=== PATIENT | male | born 1975 | race Caucasian/White ===

== ENCOUNTER 2019-08-09 08:23 | Observation (INO) ==
--- NOTE | 2019-08-05 12:37 | Anesthesiology Consultation ---
Date of Service August 05, 2019 Assessment & Plan (1) Encounter for pre-operative examination: Chart Review Chart Review: Acceptable Risk for Surgery and Patient NOT seen in Pre Admission Testing Consults Requested none History Surgery Operation Date: 08/09/19 12:00 Proposed Procedures p L4-L5, L5-S1 Laminectomy - Bert Ruelas DO Height/Weight Height: 5 ft 9 in Weight: 127.913 kg Allergies Allergy/AdvReac Type Severity Reaction Status Date / Time lisinopril AdvReac Mild Cough Verified 08/04/19 13:34 Medications Home Medications Medication Instructions Recorded Confirmed Last Taken celecoxib 200 mg capsule 200 mg PO BID 05/10/19 08/04/19 Unknown omeprazole 20 mg tablet,delayed 20 mg PO QAM 05/10/19 08/04/19 Unknown release Past Medical History Medical History Acid reflux Hypertension Elevated BP readings felt 2/2 celebrex; lisinopril was initiated but discontinued as patient developed cough (PCP aware) Morbid obesity Sciatica Exercise / Class Metabolic Activity II 4-5 Yardwork/Stairs/Walk up hill Past Family History Family History Unknown No problems noted. Past Surgical History Surgical History History of anesthesia reaction Awareness with oral surgery History of oral surgery Social History Smoking Status: Never smoker tobacco type: smokeless tobacco Do You Dip or Chew Tobacco: Yes Hx Alcohol Use: Yes Alcohol type: beer alcohol intake frequency: holidays/special occasions only Hx Substance Use: No substance use type: does not use Testing Laboratory Results Laboratory Tests 08/03/19 09:46 WBC 6.61 Hgb 15.2 Plt Count 189
--- NOTE | 2019-08-06 16:33 | History and Physical Report ---
DATE OF ADMISSION: 08/09/2019 CHIEF COMPLAINT: Back pain and lower extremity difficulty. HISTORY OF PRESENT ILLNESS: Problems have been ongoing several months. He fell from a gauthier injuring his lumbar spine, injuring his buttock region. He has had persistent nerve root irritation since then. He has been refractory to conservative care. PAST MEDICAL HISTORY: Hypertension. No cancer, COPD, diabetes mellitus, carcinoma. Obesity. PAST SURGICAL HISTORY: Negative. ALLERGIES: Negative. FAMILY HISTORY: Denied of heart disease, diabetes. SOCIAL HISTORY: He is , 2 children. No alcohol, tobacco. Moderately active. REVIEW OF SYSTEMS: Twelve system review no fevers, sweats, chills. Ear, nose and throat negative. No chest pain, palpitations, asthma, wheezing, shortness of breath. No nausea, vomiting. No urgency or frequency. He has numbness and tingling, back pain, muscle pain, and cramping. MEDICATIONS: Lisinopril and Celebrex. OBJECTIVE: GENERAL: 5 feet 9 inches, 285 pounds, in moderate distress. VITAL SIGNS: Blood pressure 140/80, pulse 80, respirations 16. HEENT: Pupils react to light and accommodation. Ear, nose and throat clear. CARDIAC: Normal S1, S2, no S3. LUNGS: Clear to auscultation. No rales, rhonchi or wheezing. ABDOMEN: Soft, nontender, bowel sounds present in all quadrants. MUSCULOSKELETAL: He has numbness and tingling. He has some straight leg raising pain. He has weakness with dorsiflexion of his right foot. IMAGES: Reviewed demonstrating fairly severe stenosis at L4-L5 and L5-S1 lumbar spine. PLAN: Includes a laminectomy L4-L5 and L5-S1 lumbar spine.
[~2019-08-09 08:23] MED LIST: CEFAZOLIN 3000MG 72.5 ML IV SCH; LIDOCAINE HCL 2% 2 ML VIAL/AMP(20MG/ML) INFIL ONE; LR 15ML/HR IV SCH; MIDAZOLAM HCL 1 MG/ML 2ML VIAL ONE; ONDANSETRON INJ 2 MG/ML 2 ML VIAL ONE; PROPOFOL IV EMULSION 10 MG/ML 20 ML VIAL IV ONE; ROCURONIUM BROMIDE 10 MG/ML 5 ML VIAL ONE; SODIUM CHLORIDE 0.9% 1000ML IV SCH; fentaNYL citrate 100 MCG/2 ML VIAL ONE
[2019-08-09] MEDS ORDERED: BUPIVACAINE/EPINEPHRINE 0.5% MPF 1:200,000 30 ML VIAL ONE (10:33)
[2019-08-09] MEDS ORDERED: GELATIN SPONGE SZ 100 ONE (10:33)
[2019-08-09] MEDS ORDERED: BACITRACIN INJ 50,000 UNIT VIAL ONE (10:33)
[2019-08-09] MEDS ORDERED: VANCOMYCIN HCL 1000MG/20ML VIAL ONE (10:33)
[2019-08-09] MEDS ORDERED: THROMBIN FOR SOLN 20000 UNIT KIT ONE (10:33)
[2019-08-09] MEDS ORDERED: HYDROmorphone INJ 2 MG/ML SYR/VIAL IV PRN (10:37)
[2019-08-09] MEDS ORDERED: ATROPINE SULFATE 0.1 MG/ML 10ML SYR IV PRN (10:37)
[2019-08-09] MEDS ORDERED: ePHEDrine sulfate 50 MG/ML AMP IV PRN (10:37)
[2019-08-09] MEDS ORDERED: PROMETHAZINE HCL 12.5 MG in SODIUM CHLORIDE 0.9% 50 ML IV PRN (10:37)
[2019-08-09] MEDS ORDERED: fentaNYL citrate 100 MCG/2 ML VIAL IV PRN (10:37)
[2019-08-09] MEDS ORDERED: ONDANSETRON INJ 2 MG/ML 2 ML VIAL IV PRN ×2 (10:37→14:00)
--- NOTE | 2019-08-09 10:44 | History & Physical Bridge Note ---
Date of Service August 09, 2019 History & Physical Bridge Note I have examined the patient, reviewed the History & Physical and in the interval since the performance of the History & Physical I have noted the following changes of clinical significance: no changes noted
[2019-08-09] MEDS ORDERED: KETAMINE HCL INJ 50 MG/ML 10 ML VIAL ONE (11:21)
[2019-08-09] MEDS ORDERED: HYDROmorphone INJ 2 MG/ML SYR/VIAL ONE (11:34)
--- NOTE | 2019-08-09 12:04 | Fluoroscopy Report ---
FL spine 1V any level CLINICAL HISTORY: L4-L5, L5-S1 LAMI COMPARISON STUDY: Lumbar spine 04/05/2019. FLUOROSCOPY TIME: 1 second. FINDINGS: Single fluoroscopic spot image of the lower lumbar spine demonstrates skin retractors poste rior to the L4-S1 levels. IMPRESSION: Fluoroscopy for for L4-S1 laminectomy. Electronically signed by: Dimitri Solano M.D. 08/09/2019 12:03 PM
--- NOTE | 2019-08-09 12:28 | Post Operative Brief Note ---
PG Immediate Post Op with CF Date of Surgery August 09, 2019 Pre & Post Diagnosis Operation Date: 08/09/19 10:10 Pre-Op Diagnosis: Spinal Stenosis, Disc Herniation Post-Op Diagnosis: Spinal Stenosis, Disc Herniation Procedure Operation Date: 08/09/19 10:10 Actual Procedures p L3-L4,L4-L5, L5-S1 Laminectomy(Not Applicable) - Bert Ruelas DO Surgeon Bert Ruelas DO [employer]inerator Plant Supervisor anurag Estimated Blood Loss 200 Findings Consistent with Post-Op Diagnosis Specimens Specimen Description: no specimen per surgeon Drains Jones Catheter and Hemovac Drain Anesthesia Type General Overlapping Procedure I was immediately available: during the entire case.
--- NOTE | 2019-08-09 12:43 | Operative Report ---
Post Operative Report Pre & Post Diagnosis Operation Date: 08/09/19 10:10 Pre-Op Diagnosis: Spinal Stenosis, Disc Herniation Post-Op Diagnosis: Spinal Stenosis, Disc Herniation Procedure Operation Date: 08/09/19 10:10 Actual Procedures p L3-L4,L4-L5, L5-S1 Laminectomy(Not Applicable) - Bert Ruelas DO Surgeon Bert Ruelas DO [employer] Consultant anurag Estimated Blood Loss 200 Findings Consistent with Post-Op Diagnosis Severe stenosis L3-4 L4-5 L5-S1 Specimens None none Anesthesia Type General Indications Severe stenosis Description of Procedure Patient was successfully brought to the operating room a general intubated anesthetic provided to the patient a temporary Jones catheter administered. Patient placed prone on Meet table scrubbed prepped draped sterile A skin incision fashion incision came down on the lamina facet joints at L3-4 L4-5 5 1. We did a meticulous decompression of neural elements 3 levels of lumbar spine L3-4 L4-5 and L5-S1 foraminotomy partial facetectomy taken out significant mild ligamentum flavum hypertrophy undercutting the facet joints. Because no injury blood loss controlled I felt no signs of instability no effusion required. We irrigated thoroughly with approximately 500 cc of fluid closed wound over Hemovac drain and vancomycin powder there will dressings applied the patient returned to PACU improved stable condition no complications no implants thank you I attest to the content of the Intraoperative Record and any orders documented therein. Any exceptions are noted below.
--- NOTE | 2019-08-09 13:16 | Anesthesiology Progress Note ---
Date of Service August 09, 2019 Anesthesia Post Procedure Vital Signs Vital Signs: Temp Pulse Pulse Resp BP Pulse Ox 08/09/19 13:04 58 L 18 121/68 100 08/09/19 12:55 59 L 18 175/95 H 97 08/09/19 12:45 68 18 166/102 H 95 08/09/19 12:37 36.9 C 70 18 173/89 H 98 08/09/19 08:52 36.9 C 63 20 129/84 97 Pain Intensity Left Lower Back: Pain Intensity: 3 Transfer of Care Handoff Completed per policy Notes Mental Status: alert / awake / arousable and participated in evaluation Patient Amnestic to Procedure: Yes Nausea / Vomiting: adequately controlled Pain: adequately controlled Airway Patency, RR, SpO2: stable & adequate BP & HR: stable & adequate Hydration State: stable & adequate Anesthetic Complications: no major complications apparent and Pt Satisfied with anesthetic care
[2019-08-09] MEDS ORDERED: OXYCODONE HCL IR 5 MG TAB (IMMEDIATE RELEASE) PO PRN (14:00)
[2019-08-09] MEDS ORDERED: HYDROmorphone INJ 1 MG/ML SYRINGE IV PRN (14:00)
[2019-08-09] MEDS ORDERED: ACETAMINOPHEN 1,000 MG/100 ML VIAL IV PRN (14:00)
[2019-08-09] MEDS ORDERED: OXYCODONE HCL IR 5 MG TAB (IMMEDIATE RELEASE) ONE (14:45)
[2019-08-09] MEDS: SODIUM CHLORIDE 0.9% 1000ML 1,000 ML IV SCH (18:24)
[2019-08-09] MEDS: CEFAZOLIN 2000MG 2,000 MG/15 ML SYR IV SCH (18:25)
[2019-08-09] MEDS: OXYCODONE HCL IR 5 MG TAB (IMMEDIATE RELEASE) PO PRN ×2 (19:01→23:53)
[2019-08-09] MEDS: DOCUSATE SODIUM 100 MG CAP PO SCH (21:53)
[2019-08-09] MEDS: CeleBREX 200 MG CAP PO SCH (21:53)
[2019-08-09] MEDS: HYDROmorphone INJ 1 MG/ML SYRINGE IV PRN (21:58)
[2019-08-10] MEDS: CEFAZOLIN 2000MG 2,000 MG/15 ML SYR IV SCH ×2 (03:27→10:50)
[2019-08-10] MEDS: OXYCODONE HCL IR 5 MG TAB (IMMEDIATE RELEASE) PO PRN ×2 (03:47→10:26)
[2019-08-10] MEDS: SODIUM CHLORIDE 0.9% 1000ML 1,000 ML IV SCH (05:32)
[2019-08-10] MEDS: HYDROmorphone INJ 1 MG/ML SYRINGE IV PRN (06:41)
[2019-08-10] MEDS: CeleBREX 200 MG CAP PO SCH ×2 (08:41→21:05)
[2019-08-10] MEDS: PANTOprazole 40 MG TAB PO SCH (08:41)
[2019-08-10] MEDS: DOCUSATE SODIUM 100 MG CAP PO SCH ×2 (08:41→21:05)
--- NOTE | 2019-08-10 08:46 | Anesthesiology Progress Note ---
Date of Service August 10, 2019 Anesthesia Post Procedure Vital Signs Vital Signs: Temp Pulse Pulse Resp BP Pulse Ox 08/10/19 07:38 37.0 C 59 L 16 104/58 L 96 08/10/19 03:28 37.2 C 66 18 112/69 95 08/09/19 23:14 37.5 C 81 15 109/68 96 08/09/19 19:35 36.5 C 61 16 118/73 99 08/09/19 16:34 36.5 C 57 L 16 106/64 92 08/09/19 15:26 36.5 C 79 16 104/64 98 08/09/19 14:18 58 L 16 110/72 100 08/09/19 13:50 36.6 C 57 L 16 103/67 100 08/09/19 13:35 36.8 C 61 18 109/64 100 08/09/19 13:25 36.8 C 59 L 18 115/61 100 08/09/19 13:15 36.8 C 69 18 125/69 100 08/09/19 13:05 58 L 18 121/68 100 08/09/19 12:55 59 L 18 175/95 H 97 08/09/19 12:45 68 18 166/102 H 95 08/09/19 12:37 36.9 C 70 18 173/89 H 98 08/09/19 08:52 36.9 C 63 20 129/84 97 Pain Intensity Left Lower Back: Pain Intensity: 8 Notes Mental Status: alert / awake / arousable Patient Amnestic to Procedure: Yes Nausea / Vomiting: adequately controlled Pain: adequately controlled Airway Patency, RR, SpO2: stable & adequate BP & HR: stable & adequate Hydration State: stable & adequate Anesthetic Complications: no major complications apparent
[2019-08-10] MEDS: HYDROCODONE/ACETAMINOPHEN 10/325 TAB PO PRN ×2 (14:53→21:04)
--- NOTE | 2019-08-10 14:59 | Operative Report ---
Post Operative Report Pre & Post Diagnosis Operation Date: 08/09/19 10:10 Pre-Op Diagnosis: Spinal Stenosis, Disc Herniation Post-Op Diagnosis: Spinal Stenosis, Disc Herniation Procedure Operation Date: 08/09/19 10:10 Actual Procedures p L3-L4,L4-L5, L5-S1 Laminectomy(Not Applicable) - Bert Ruelas DO Surgeon Bert Ruelas DO Orientation & Mobility Specialist anurag Estimated Blood Loss 200 Findings Consistent with Post-Op Diagnosis I attest to the content of the Intraoperative Record and any orders documented therein. Any exceptions are noted below.
[2019-08-11] MEDS: HYDROCODONE/ACETAMINOPHEN 10/325 TAB PO PRN ×2 (03:04→09:04)
[2019-08-11] MEDS ORDERED: bisacodyL 5 MG TABEC PO PRN (06:00)
[2019-08-11] MEDS: DOCUSATE SODIUM 100 MG CAP PO SCH (07:53)
[2019-08-11] MEDS: PANTOprazole 40 MG TAB PO SCH (07:53)
[2019-08-11] MEDS: CeleBREX 200 MG CAP PO SCH (07:54)
--- NOTE | 2019-08-11 07:57 | Discharge Summary ---
DATE OF DISCHARGE: 08/11/19 HISTORY OF PRESENT ILLNESS AND HOSPITAL COURSE: Rajeev is alert and oriented this morning. Moderate complaints of pain, taking p.o. No chest pain, shortness of breath. He has had an uneventful stay during his course here at the hospital. ASSESSMENT: Status post lumbar laminectomy, multiple levels with an obese individual. PLAN: Includes discharge home today with instruction, precautions, and a followup appointment in approximately 10 days.
[2019-08-11] MEDS ORDERED: POLYETHYLENE (MIRALAX) 17 GM PACK PO SCH ×2 (09:00→12:38)
== END 2019-08-11 10:15 | disposition home health service (06) ==
LOC: ASU 08:23 → 3E 08:23

== ENCOUNTER 2019-08-13 04:55 | Inpatient (IN) ==
[2019-08-13 06:11] LABS: Basophils # (auto) 0.04 K/uL (0-0.2); Basophils % (auto) 0.5 %; Eosinophils # (auto) 0.22 K/uL (0-0.5); Eosinophils % (auto) 2.6 %; Hematocrit (blood only) 36.6 % (42-52); Hemoglobin 11.9 g/dL (14.0-18.0); Immature Granulocytes # (auto) 0.03 K/uL (0.00-0.02); Immature Granulocytes % (auto) 0.4 %; Lymphocytes # (auto) 1.54 K/uL (1.2-3.4); Lymphocytes % (auto) 18.3 %; Mean Corpuscular Hemoglobin 29.9 pg (25-34); Mean Corpuscular Hgb Conc 32.5 g/dL (32-36); Mean Platelet Volume 11.5 fL (7.4-10.4); Monocytes % (auto) 7.1 %; Neutrophils % (auto) 71.1 %; Platelet Count 190 K/uL (130-400); RDW Coefficient of Variation 12.2 % (11.5-14.5); RDW Standard Deviation 41.3 fL (36.4-46.3); Red Blood Count 3.98 M/uL (4.7-6.1); White Blood Count 8.43 K/uL (4.8-10.8)
[2019-08-13] MEDS ORDERED: HYDROmorphone INJ 2 MG/ML SYR/VIAL IV STA (06:19)
[2019-08-13 06:28] LABS: Albumin Level 3.3 gm/dl (3.4-5.0); BUN Creatinine Ratio 15.6 (10-20); Calcium 8.6 mg/dl (8.5-10.1); Creatinine Clr Calc Pharmacy 129.8 ml/min; Est GFR (African American) 110.8; Est GFR (Non-African American) 95.6
[2019-08-13 06:31] LABS: Albumin Globulin Ratio 0.9 (0.9-2); Bilirubin,Total 0.4 mg/dl (0.2-1); C Reactive Protein 11.1 mg/dl (0-0.29); Globulin 3.6 gm/dl (2.5-4.0); Total Protein 6.9 gm/dl (6.4-8.2)
[2019-08-13] MEDS ORDERED: IOVERSOL 100ml IV PRN (06:40)
--- NOTE | 2019-08-13 07:04 | CT Scan Report ---
CT lumbar spine w con CLINICAL HISTORY: 44 years-old Male presenting with eval for abscess - post-surgical. TECHNIQUE: Multidetector CT of the lumbar spine was performed after the administration of intravenous contrast. IV contrast: 94 mL of Optiray 320. One or more dose lowering techniques were used consiste nt with the principles of ALARA (as low as reasonably achievable), including automatic exposure contr ol, mA or kV adjustment to individual patient size, and/or use of iterative reconstruction. COMPARISON: MR from 04/05/2019. CT DOSE (mGy.cm): The estimated cumulative dose is 767.26 mGy.cm. FINDINGS: Online Marketing Analyst topogram: Unremarkable. There has been interval laminectomies of L4 and L5. Overlying skin holger noted. Extensive infiltrat rose changes in the operative bed. Foci of gas also noted in the epidural region as well as within the spinal canal. This focus of gas may likely still be epidural (series 3 image [id number]). The gas may be ex pected depending on the surgical time course. No rim-enhancing collection is grossly apparent allowin g for the limitations of CT. Normal lumbar lordosis. Vertebral bodies maintain normal height and alignment. Moderate intervertebra l disc height loss at L3-4, where there is the greatest degree of degenerative change with a disc ost eophyte complex and moderate posterior spondylitic spurring. This results in moderate to severe spina l canal narrowing at this level. Similar degree of degenerative change at L5-S1 though there has been posterior decompression. Lesser degree of degenerative change at L4-5. Osseous neural foraminal narr owing noted on the right at L3-4 through L5-S1, greatest at L3-4, and on the left at L3-4 through L5- S1, greatest at L5-S1. No acute fracture or subluxation. Mild levoscoliosis may in part be positional. Visualized portion of the sacrum intact. IMPRESSION: 1. Gas and inflammatory changes likely all within the epidural space at the level of the L4 and L5 l aminectomies. This could be expected depending on the surgical time course. Allowing for the limitati ons and CT, no evidence of an epidural abscess. Notably, MRI is more sensitive for this diagnosis. 2. Significant adjacent level degenerative change at L3-4 with suspected moderate to severe spinal c anal stenosis. 3. Multilevel neural foraminal narrowing as detailed above. Electronically signed by: Jose Valdes M.D. 08/13/2019 7:02 AM
--- NOTE | 2019-08-13 08:28 | Emergency Department Note ---
Entered by Donta Keller acting as a scribe for Vikki Correa DO History of Present Illness General Chief complaint: Back Injury/Pain Stated complaint: POST-OP (MON), WORSENING BACK PAIN Time Seen by Provider: 08/13/19 05:04 Source: patient History of Present Illness Onset (ago): day(s) (yesterday) Location: back Pain Consistency: + other (worsening) Maximum Pain Intensity: 10 Quality: + stabbing Exacerbated By: + movement Associated symptoms: + other (Negative for abdominal pain, urinary incontinence, and changes in his appetite. ) The patient is a 44 year old male who presents to the emergency department with complaints of worsening back pain beginning yesterday. The patient states that he had a L3-L4, L4-L5, L5-S1 laminectomy four days ago. He notes that he has mild pain at the incision site, but he reports that he has been having worsening back pain with movement. The patient states that his pain feels like a stabbing that goes along with his heart beat, and he notes that it lasts for a few seconds at a time. He denies any abdominal pain, urinary incontinence, and changes in his appetite. Home Medications Home Medications Medication Instructions Recorded Confirmed Type celecoxib 200 mg capsule 200 mg PO BID 05/10/19 08/13/19 History omeprazole 20 mg tablet,delayed 20 mg PO QAM 05/10/19 08/13/19 History release hydrocodone-acetaminophen [[place]] 1 tab PO Q6H PRN #40 tab 08/09/19 08/13/19 Rx hydromorphone [Dilaudid] 4 mg PO Q6H PRN #20 tab 08/11/19 08/13/19 Rx Allergies Allergy/AdvReac Type Severity Reaction Status Date / Time lisinopril AdvReac Mild Cough Verified 08/13/19 05:15 Past Med/Surg History Medical History Encounter for pre-operative examination Lumbar spinal stenosis Lumbar radiculopathy Acid reflux Hypertension Elevated BP readings felt 2/2 celebrex; lisinopril was initiated but discontinued as patient developed cough (PCP aware) Anemia Morbid obesity Sciatica Surgical History History of lumbar laminectomy History of anesthesia reaction Awareness with oral surgery History of oral surgery Family History Unknown No problems noted. Social History Preferred Language: Irish Communication Ability: Effective Monomer Recovery Supervisor Required: No Beliefs That Will Affect Care: None marital status: Current Living Situation: Family current occupational status: employed current occupation: light duty Other Information That Helps Us Care for You: No Feels Safe at Home: Yes Smoking Status: Former smoker Tobacco Type: smokeless tobacco ; Do You Dip or Chew Tobacco: Yes ; Smoking End Date: 1990 ; Second Hand Exposure: No ; Tobacco Cessation Education Requested by Patient: No Hx Alcohol Use: No Hx Substance Use: No Review of Systems See HPI for pertinent positives & negatives. and A total of 10 systems reviewed and were otherwise negative Physical Exam Vital Signs Vital Signs - 24 hr 08/13/19 04:57 Temperature 37.1 C Temperature Source Oral Sepsis Recent Fever Within 48 Hours No Sepsis New/Unexplained Change in Mental Status No Sepsis Action Taken by Nursing No Action Required Pulse Rate 76 Respiratory Rate 20 Respiratory Effort / Characteristics Non-Labored Spontaneous Respiratory Depth Normal Blood Pressure 133/82 Blood Pressure Mean 99 Pulse Oximetry 99 Oxygen Delivery Method Room Air General: Appears uncomfortable, lying on right side. HEENT: Head - normocephalic and atraumatic Pupils are equal, round, and reactive to light. Extraocular eye muscles are intact, and sclera are anicteric. Nose - moist nasal mucosa without discharge. Mouth - moist buccal mucosa. Oropharynx is nonerythematous and there is no tonsillar exudate or edema noted. Neck: Supple; no JVD, nuchal rigidity, cervical lymphadenopathy, or auscultated bruits. Heart: Regular rate and rhythm. There is a normal S1 and S2 with no murmurs, clicks, or gallops appreciated. Lungs: Clear to auscultation bilaterally with no wheezes, rales, or rhonchi. Back: Surgical incision holger in place, no signs of infection. No drainage. Abdomen: Soft, completely nontender, nondistended, with good bowel sounds. There are no palpable pulsatile masses or hepatosplenomegaly. There is no guarding, rigidity, or rebound noted. Extremities: No evidence of cyanosis, clubbing, or edema. There are easily palpable peripheral pulses. Skin: warm and dry with good turgor and no rashes. Neuro: Normal muscle strength at the ankles and knees, 0/4 patellar reflexes in both legs, 2/4 Achilles reflexes in both legs. Course 0513: The patient was evaluated in room A4. A complete history and physical examination were performed. Nursing notes and previous electronic medical records were reviewed. IV lock was established and labs were drawn as above. 0623: Hydromorphone HCl 2mg IV 0705: I reevaluated and updated the patient. He got some relief of his pain after receiving medication. Dr. Ruelas - Orthopedic Surgery, [facility], was paged. We were unable to reach him. I then spoke with Dr. Antoine Hitchcock who was covering for him and he will evaluate the patient. Administered Medications Hydrocodone Bitart/Acetaminophen ([place] 10/325) 1 tab PO Q6H PRN PRN Reason: pain Stop: 08/27/19 16:23 Last Admin: 08/15/19 19:19 Dose: 1 tab Documented by: [id number] Admin: 08/14/19 03:23 Dose: 1 tab Documented by: [id number] Admin: 08/13/19 20:35 Dose: 1 tab Documented by: [id number] Hydromorphone HCl (Dilaudid) 4 mg PO Q6H PRN PRN Reason: severe pain (8-10) Stop: 08/27/19 16:29 Last Admin: 08/14/19 15:52 Dose: 4 mg Documented by: [id number] Admin: 08/14/19 07:54 Dose: 4 mg Documented by: [id number] Admin: 08/13/19 23:27 Dose: 4 mg Documented by: [id number] Admin: 08/13/19 17:19 Dose: 4 mg Documented by: [id number] Ketorolac Tromethamine (Toradol) 30 mg IV Q6H PRN PRN Reason: MODERATE Pain 4,5,6 Stop: 08/18/19 16:23 Last Admin: 08/16/19 08:08 Dose: 30 mg Documented by: [id number] Admin: 08/16/19 00:25 Dose: 30 mg Documented by: [id number] Admin: 08/15/19 13:49 Dose: 30 mg Documented by: [id number] Admin: 08/15/19 00:18 Dose: 30 mg Documented by: [id number] Admin: 08/14/19 13:40 Dose: 30 mg Documented by: [id number] Pantoprazole Sodium (Protonix) 40 mg PO QAM [facility] Stop: 09/13/19 08:59 Last Admin: 08/16/19 08:08 Dose: 40 mg Documented by: [id number] Admin: 08/15/19 08:32 Dose: 40 mg Documented by: [id number] Admin: 08/14/19 07:56 Dose: 40 mg Documented by: [id number] Discontinued Medications Bacitracin (Bacitracin) Confirm Administered Dose 50,000 units .ROUTE .STK-MED ONE Stop: 08/13/19 13:59 Last Admin: 08/13/19 14:42 Dose: 50,000 units Documented by: [id number] Bupivacaine HCl/Epinephrine Bitart (Sensorcaine/Epinephrine 0.5% Mpf 1:200,000) Confirm Administered Dose 30 ml .ROUTE .STK-MED ONE Stop: 08/13/19 13:59 Last Admin: 08/13/19 14:44 Dose: 10 ml Documented by: [id number] Cefazolin Sodium (Ancef) Confirm Administered Dose 2,000 mg .ROUTE .STK-MED ONE Stop: 08/13/19 14:26 Last Admin: 08/13/19 14:29 Dose: Not Given Documented by: [id number] Gentamicin Sulfate (Garamycin) Confirm Administered Dose 120 mg .ROUTE .STK-MED ONE Stop: 08/13/19 13:59 Last Admin: 08/13/19 14:44 Dose: Not Given Documented by: [id number] Hydromorphone HCl (Dilaudid) 2 mg IV NOW STA Stop: 08/13/19 06:20 Last Admin: 08/13/19 06:23 Dose: 2 mg Documented by: [id number] Hydromorphone HCl (Dilaudid) 0.5 mg IV Q3H PRN PRN Reason: moderate pain (scale 4-6) Stop: 08/27/19 11:05 Last Admin: 08/13/19 12:10 Dose: 0.5 mg Documented by: [id number] Hydromorphone HCl (Dilaudid) 0.5 mg IV Q5M PRN PRN Reason: PACU Use Only-Pain Stop: 08/13/19 18:50 Last Admin: 08/13/19 15:54 Dose: 0.5 mg Documented by: [id number] Admin: 08/13/19 15:49 Dose: 0.5 mg Documented by: [id number] Admin: 08/13/19 15:44 Dose: 0.5 mg Documented by: [id number] Admin: 08/13/19 15:39 Dose: 0.5 mg Documented by: [id number] Cefazolin Sodium (Ancef 2000mg) 2,000 mg in 15 mls @ 3.75 mls/min IV NOW STA; Protocol Stop: 08/13/19 12:12 Last Admin: 08/13/19 12:16 Dose: 3.75 mls/min Documented by: [id number] Cefazolin Sodium (Ancef 3000mg) 72.5 mls @ 130 mls/hr IV ONCE ONE Stop: 08/13/19 15:02 Last Infusion: 08/13/19 18:52 Dose: 0 mls/hr Documented by: [id number] Admin: 08/13/19 14:27 Dose: 130 mls/hr Documented by: [id number] Lactated Ringer's (Lr) 1,000 mls @ 80 mls/hr IV .[id number] MAR Stop: 08/14/19 16:23 Last Infusion: 08/14/19 05:47 Dose: 0 mls/hr Documented by: [id number] Admin: 08/13/19 17:16 Dose: 80 mls/hr Documented by: [id number] Infusion: 08/13/19 17:16 Dose: 80 mls/hr Documented by: [id number] Admin: 08/13/19 16:36 Dose: 80 mls/hr Documented by: [id number] Cefazolin Sodium (Ancef 2000mg) 2,000 mg in 15 mls @ 3.75 mls/min IV Q8H MAR; Protocol Stop: 08/14/19 12:03 Last Admin: 08/14/19 12:29 Dose: 3.75 mls/min Documented by: [id number] Admin: 08/14/19 03:23 Dose: 3.75 mls/min Documented by: [id number] Admin: 08/13/19 20:35 Dose: 3.75 mls/min Documented by: [id number] Dexamethasone Sodium Phosphate (8 mg/ Syringe) 2 mls @ 1 mls/min IV Q8H MAR Stop: 08/15/19 06:01 Last Admin: 08/15/19 05:58 Dose: 1 mls/min Documented by: [id number] Admin: 08/14/19 21:38 Dose: 1 mls/min Documented by: [id number] Admin: 08/14/19 13:34 Dose: 1 mls/min Documented by: [id number] Ioversol (Optiray 320 100ml) 94 ml IV ONCE PRN PRN Reason: Interaction Checking Stop: 08/17/19 06:39 Last Admin: 08/13/19 06:41 Dose: 94 ml Documented by: [id number] Magnesium Citrate (Citrate) 296 ml PO NOW STA Stop: 08/14/19 16:14 Last Admin: 08/14/19 17:35 Dose: 296 ml Documented by: [id number] Miscellaneous (Floseal Hemostatic Matrix 10ml) 10 ml TOP ONCE ONE Stop: 08/13/19 14:43 Last Admin: 08/13/19 14:49 Dose: Not Given Documented by: [id number] Vancomycin HCl (Vancomycin Hcl) Confirm Administered Dose 50 mg .ROUTE .STK-MED ONE Stop: 08/13/19 13:59 Last Admin: 08/13/19 14:45 Dose: Not Given Documented by: [id number] Medical Decision Making Differential Diagnosis Differential diagnoses include: post-surgical abscess, hematoma, lumbar strain, discitis, and myelitis. Medical Records Attestation: I reviewed the patient's medical records. Home Medications Current Medication List: was personally reviewed by me Laboratory Data Attestation: I reviewed the patient's lab results. Result diagrams: 08/13/19 06:00 08/13/19 06:00 Lab Results 08/13/19 08/13/19 08/13/19 Range/Units 06:00 06:00 06:00 WBC 8.43 (4.8-10.8) K/uL RBC 3.98 L (4.7-6.1) M/uL Hgb 11.9 L (14.0-18.0) g/dL Hct 36.6 L (42-52) % MCV 92.0 (80-100) fL MCH 29.9 (25-34) pg MCHC 32.5 (32-36) g/dL RDW Std Deviation 41.3 (36.4-46.3) fL RDW Coeff of Viviane 12.2 (11.5-14.5) % Plt Count 190 (130-400) K/uL MPV 11.5 H (7.4-10.4) fL Immature Gran % (Auto) 0.4 % Neut % (Auto) 71.1 % Lymph % (Auto) 18.3 % [place] % (Auto) 7.1 % Eos % (Auto) 2.6 % Baso % (Auto) 0.5 % Immature Gran # (Auto) 0.03 H (0.00-0.02) K/uL Neut # (Auto) 6.00 (1.4-6.5) K/uL Lymph # (Auto) 1.54 (1.2-3.4) K/uL [place] # (Auto) 0.60 H (0.11-0.59) K/uL Eos # (Auto) 0.22 (0-0.5) K/uL Baso # (Auto) 0.04 (0-0.2) K/uL ESR 58 H (0-14) mm/hr Sodium 137 (136-145) mmol/L Potassium 4.0 (3.5-5.1) mmol/L Chloride 102 (98-107) mmol/L Carbon Dioxide 30 (21-32) mmol/L Anion Gap 5.0 (3-11) BUN 15 (7-18) mg/dl Creatinine 0.95 (0.6-1.4) mg/dl Est Cr Clr Drug Dosing 129.8 ml/min Est GFR ( Amer) 110.8 Est GFR (Non-Af Amer) 95.6 BUN/Creatinine Ratio 15.6 (10-20) Glucose 93 (70-99) mg/dl Calcium 8.6 (8.5-10.1) mg/dl Total Bilirubin 0.4 (0.2-1) mg/dl AST 14 L (15-37) U/L ALT 20 (12-78) U/L Alkaline Phosphatase 73 (45-117) U/L C-Reactive Protein 11.10 H (0-0.29) mg/dl Total Protein 6.9 (6.4-8.2) gm/dl Albumin 3.3 L (3.4-5.0) gm/dl Globulin 3.6 (2.5-4.0) gm/dl Albumin/Globulin Ratio 0.9 (0.9-2) Imaging Data Radiologist's Impression: Radiology results as stated below per my review and the radiologist's interpretation: CT lumbar spine w con FINDINGS: Barrel Inspector Tight topogram: Unremarkable. There has been interval laminectomies of L4 and L5. Overlying skin holger noted. Extensive infiltrative changes in the operative bed. Foci of gas also noted in the epidural region as well as within the spinal canal. This focus of gas may likely still be epidural (series 3 image 286). The gas may be expected depending on the surgical time course. No rim-enhancing collection is grossly apparent allowing for the limitations of CT. Normal lumbar lordosis. Vertebral bodies maintain normal height and alignment. Moderate intervertebral disc height loss at L3-4, where there is the greatest degree of degenerative change with a disc osteophyte complex and moderate posterior spondylitic spurring. This results in moderate to severe spinal canal narrowing at this level. Similar degree of degenerative change at L5-S1 though there has been posterior decompression. Lesser degree of degenerative change at L4-5. Osseous neural foraminal narrowing noted on the right at L3-4 through L5- S1, greatest at L3-4, and on the left at L3-4 through L5-S1, greatest at L5-S1. No acute fracture or subluxation. Mild levoscoliosis may in part be positional. Visualized portion of the sacrum intact. IMPRESSION: 1. Gas and inflammatory changes likely all within the epidural space at the level of the L4 and L5 laminectomies. This could be expected depending on the surgical time course. Allowing for the limitations and CT, no evidence of an epidural abscess. Notably, MRI is more sensitive for this diagnosis. 2. Significant adjacent level degenerative change at L3-4 with suspected moderate to severe spinal canal stenosis. 3. Multilevel neural foraminal narrowing as detailed above. Electronically signed by: Jose Valdes M.D. 08/13/2019 7:02 AM Blood Pressure Blood Pressure Findings: Elevated blood pressure Blood Pressure Disposition: elevated BP felt to be situational MDM Narrative The patient is a 44 year old male who presents to the emergency department with complaints of worsening back pain beginning yesterday. The patient underwent laminectomy with Dr. Ruelas earlier this week and seemed to be doing okay postsurgically. However over the past day, the patient developed increasing pain at the site of the surgery, especially with any type of movement or increased intra-thoracic/abdominal pressure. The patient describes the pain is unbearable when it occurs. CT scan revealed evidence of some gas and fluid at the site of the surgery but was described as being normal postsurgical. The patient received IV analgesia here in the emergency department but remains quite uncomfortable. I discussed t he case with Dr. Collado from orthopedics and he will evaluate the patient. Impression & Plan Intractable back pain, Status post lumbar laminectomy Discharge Plan Visit Data *Final* Discharge Date/Time: 08/13/19 11:58 Chief Complaint: Back Injury/Pain Stated Complaint: POST-OP (MON), WORSENING BACK PAIN ED Provider: Vikki Correa Discharge Problem: Intractable back pain, Status post lumbar laminectomy Patient Disposition: Admitted As Inpatient Discharge Instructions Interventions: ED Discharge Assessment Last Done: 08/13/19 11:58 The scribe's documentation has been prepared under my direction and personally reviewed by me in its entirety. I confirm that the note above accurately reflects all work, treatment, procedures, and medical decision making performed by me.
[2019-08-13] MEDS ORDERED: ONDANSETRON INJ 2 MG/ML 2 ML VIAL IV PRN ×2 (11:06→13:50)
[2019-08-13] MEDS ORDERED: ACETAMINOPHEN 500 MG TAB PO PRN (11:06)
[2019-08-13] MEDS ORDERED: METOCLOPRAMIDE HCL INJ 5 MG/ML 2 ML VIAL IV PRN (11:06)
[2019-08-13] MEDS ORDERED: ONDANSETRON 4 MG TAB PO PRN (11:06)
[2019-08-13] MEDS ORDERED: LORazepam 1 MG TAB PO PRN (11:06)
[2019-08-13] MEDS ORDERED: HYDROmorphone INJ 0.5 MG/0.5 ML SYR IV PRN (11:06)
[2019-08-13] MEDS ORDERED: PROMETHAZINE HCL 12.5 MG in SODIUM CHLORIDE 0.9% 50 ML IV PRN (11:06)
[2019-08-13] MEDS ORDERED: LORazepam 1 MG/2 ML VIAL IV PRN (11:06)
[2019-08-13] MEDS ORDERED: OXYCODONE HCL IR 5 MG TAB (IMMEDIATE RELEASE) PO PRN (11:06)
--- NOTE | 2019-08-13 11:12 | History & Physical Report ---
Date of Service August 13, 2019 Assessment & Plan (1) Epidural hematoma: Patient has evidence of acute lumbar epidural hematoma status post lumbar decompression. Plan at this time I am recommending emergent lumbar decompression and evacuation of hematoma. Risk benefits pros cons and alte rnatives were outlined with the patient and his in detail. We will try to have surgery soon as possible. Present on Admission?: Yes History of Present Illness Chief Complaint: Severe back and bilateral leg pain with urinary retention Primary Care Provider: Donta Thony This is a 44-year-old male that presents with severe back and bilateral leg pain. He is status post lumbar decompression Friday of this week. He done very well surgically and was discharged home in a normal condition. That upon discharge she was not using a walker and was pain-free. Unfortunately yesterday he began expensing worsening leg pain and back pain rating down both extremities. He states any coughing sneezing or cervical flexion reproduces severe back and bilateral leg pain. Denies any trauma fall or event. Is jaelyn cribing urinary retention. He is unable to ambulate without the assistance of a walker. He is very uncomfortable. Allergies Allergy/AdvReac Type Severity Reaction Status Date / Time lisinopril AdvReac Mild Cough Verified 08/13/19 05:15 Home Medications Home Medications Medication Instructions Recorded Confirmed Type celecoxib 200 mg capsule 200 mg PO BID 05/10/19 08/13/19 History omeprazole 20 mg tablet,delayed 20 mg PO QAM 05/10/19 08/13/19 History release hydrocodone-acetaminophen [[place]] 1 tab PO Q6H PRN #40 tab 08/09/19 08/13/19 Rx hydromorphone [Dilaudid] 4 mg PO Q6H PRN #20 tab 08/11/19 08/13/19 Rx Past Med/Surg History Medical History Encounter for pre-operative examination Lumbar spinal stenosis Lumbar radiculopathy Acid reflux Hypertension Elevated BP readings felt 2/2 celebrex; lisinopril was initiated but discontinued as patient developed cough (PCP aware) Morbid obesity Sciatica Surgical History History of anesthesia reaction Awareness with oral surgery History of oral surgery Social History Preferred Language: Congolese Communication Ability: Effective Recruiting Specialist Required: No Beliefs That Will Affect Care: None marital status: Current Living Situation: Spouse current occupational status: employed current occupation: light duty Feels Safe at Home: Yes Smoking Status: Never smoker Tobacco Type: smokeless tobacco ; Second Hand Exposure: No ; Hx Alcohol Use: Yes Alcohol type: beer Alcohol Intake Frequency: Rarely Hx Substance Use: No Physical Exam Physical Exam: On exam he is in bed. Is able to roll to side. Incision appears to be clean dry and intact. There is appreciable swelling. There is no drainage. He does exhibit reasonable strength testing with tension signs bilaterally. There is significant nuchal rigidity. Sensory symmetric and intact. Results & Data Vital Signs (Past 12 Hours) Vital Signs Temp Pulse Pulse Resp BP BP Pulse Ox 08/13/19 08:55 84 16 109/53 L 96 08/13/19 04:57 37.1 C 76 20 133/82 99 Code Status & VTE Plan VTE Prophylaxis Plan VTE Prophylaxis will be ordered: Yes
--- NOTE | 2019-08-13 11:46 | Anesthesiology Consultation ---
Date of Service August 13, 2019 Assessment & Plan (1) Encounter for pre-operative examination: Chart Review Chart Review: Acceptable Risk for Surgery (08/09/19 laminectomy, MAC 3, grade III view) History Surgery Operation Date: 08/13/19 13:05 Proposed Procedures p Incision and Drainage Lumbar - Lalo Hinojosa, Height/Weight Height: 5 ft 9 in Weight: 130 kg Allergies Allergy/AdvReac Type Severity Reaction Status Date / Time lisinopril AdvReac Mild Cough Verified 08/13/19 05:15 Medications Home Medications Medication Instructions Recorded Confirmed Last Taken celecoxib 200 mg capsule 200 mg PO BID 05/10/19 08/13/19 08/12/19 omeprazole 20 mg tablet,delayed 20 mg PO QAM 05/10/19 08/13/19 08/12/19 release hydrocodone-acetaminophen [[place]] 1 tab PO Q6H PRN #40 tab 08/09/19 08/13/19 08/13/19 03:00 hydromorphone [Dilaudid] 4 mg PO Q6H PRN #20 tab 08/11/19 08/13/19 08/12/19 22:00 Active Medications Generic Name Dose Route Start Last Admin Trade Name Freq PRN Reason Stop Dose Admin Ioversol 94 ml 08/13/19 06:40 08/13/19 06:41 Optiray 320 100ml IV 08/17/19 06:39 94 ml ONCE PRN Administration Interaction Checking Past Medical History Medical History Encounter for pre-operative examination Lumbar spinal stenosis Lumbar radiculopathy Acid reflux Hypertension Elevated BP readings felt 2/2 celebrex; lisinopril was initiated but discontinued as patient developed cough (PCP aware) Anemia Morbid obesity Sciatica Past Family History Family History Unknown No problems noted. Past Surgical History Surgical History History of lumbar laminectomy History of anesthesia reaction Awareness with oral surgery History of oral surgery Social History Smoking Status: Never smoker tobacco type: smokeless tobacco Hx Alcohol Use: Yes Alcohol type: beer alcohol intake frequency: holidays/special occasions only Hx Substance Use: No substance use type: does not use Physical Exam Vital Signs Last Vital Signs Temp 37.1 C 08/13/19 04:57 Pulse 79 08/13/19 10:00 Resp 16 08/13/19 10:00 BP 136/74 08/13/19 10:00 Pulse Ox 96 08/13/19 10:00 Testing Laboratory Results 08/13/19 06:00 08/13/19 06:00
[2019-08-13] MEDS ORDERED: CEFAZOLIN 2000MG 2,000 MG/15 ML SYR IV STA (12:09)
[2019-08-13] MEDS ORDERED: LACTATED RINGER'S 1,000 ML IV SCH (12:30)
[2019-08-13] MEDS ORDERED: fentaNYL citrate 100 MCG/2 ML VIAL ONE ×3 (13:46→14:46)
[2019-08-13] MEDS ORDERED: MIDAZOLAM HCL 1 MG/ML 2ML VIAL ONE (13:46)
[2019-08-13] MEDS ORDERED: ATROPINE SULFATE 0.1 MG/ML 10ML SYR IV PRN (13:50)
[2019-08-13] MEDS ORDERED: LABETALOL HCL IV 5 MG/ML 20ML IV PRN (13:50)
[2019-08-13] MEDS ORDERED: HYDROmorphone INJ 2 MG/ML SYR/VIAL ONE (13:56)
[2019-08-13] MEDS ORDERED: GENTAMICIN SULFATE 40 MG/ML 2 ML VIAL ONE (13:58)
[2019-08-13] MEDS ORDERED: BUPIVACAINE/EPINEPHRINE 0.5% MPF 1:200,000 30 ML VIAL ONE (13:58)
[2019-08-13] MEDS ORDERED: VANCOMYCIN HCL 1000MG/20ML VIAL ONE (13:58)
[2019-08-13] MEDS ORDERED: BACITRACIN INJ 50,000 UNIT VIAL ONE (13:58)
[2019-08-13] MEDS ORDERED: GLYCOPYRROLATE 0.2 MG/ML VIAL ONE (14:03)
[2019-08-13] MEDS ORDERED: PROPOFOL IV EMULSION 10 MG/ML 20 ML VIAL IV ONE (14:03)
[2019-08-13] MEDS ORDERED: DEXAMETHASONE SOD INJ 4 MG/ML VIAL ONE (14:03)
[2019-08-13] MEDS ORDERED: ROCURONIUM BROMIDE 10 MG/ML 5 ML VIAL ONE (14:03)
[2019-08-13] MEDS ORDERED: ONDANSETRON INJ 2 MG/ML 2 ML VIAL ONE (14:03)
[2019-08-13] MEDS ORDERED: LIDOCAINE HCL 2% 2 ML VIAL/AMP(20MG/ML) INFIL ONE (14:03)
[2019-08-13] MEDS ORDERED: NEOSTIGMINE METHYLSULFATE 1 MG/ML 10ML VIAL ONE (14:03)
[2019-08-13] MEDS ORDERED: CEFAZOLIN 250 MG/ML 1 GM VIAL ONE ×2 (14:25→14:27)
[2019-08-13] MEDS ORDERED: CEFAZOLIN 3000MG 72.5 ML IV ONE (14:29)
[2019-08-13] MEDS ORDERED: FLOSEAL HEMOSTATIC MATRIX 10ML TOP ONE (14:42)
[2019-08-13] MEDS ORDERED: LARYING-O-JET KIT (LTA) ONE (14:49)
[2019-08-13] MEDS ORDERED: KETOROLAC 30 MG/ML VIAL ONE (14:49)
--- NOTE | 2019-08-13 15:04 | Operative Report ---
Post Operative Report Pre & Post Diagnosis Operation Date: 08/13/19 13:05 Pre-Op Diagnosis: EPIDURAL HEMATOMA Post-Op Diagnosis: EPIDURAL HEMATOMA Procedure Operation Date: 08/13/19 13:05 Actual Procedures Evacuation of hematoma lumbar spine Surgeon Lalo Hinojosa DO Analytics Consultant None Estimated Blood Loss 50 Findings Consistent with Post-Op Diagnosis Specimens None Indications This is a 44-year-old male who presents with a steady decline in status over the past 24 hours with worsening back and bilateral leg pain. This is approximately 4 days postop lumbar decompression. Subsequently we elected to go undergo urgent evacuation of hematoma. Description of Procedure Patient was met with identified and informed consent obtained. He was then taken to the operative suite underwent intubation placed in a prone position on the Meet table on top of the Noel frame. All bony prominences well-padded eyes inspected to ensure no external pressure placed upon the peer at this point the lumbar spine was prepped and draped in normal sterile fashion. Utilizing the previous incision site sharp dissection was performed down to and exposing the epidural space. The tissues appear to be very healthy. An organized hematoma was noted along the dorsal aspect of the thecal sac. It was removed in its entirety and proximal with 3 L of antibiotic solution irrigated throughout the incision. 15 round MILA drain was then inserted and incision was closed with subcutaneous Vicryl and holger for final skin closure. Sterile dressing was placed. Patient was awakened taken to PACU in stable condition. I attest to the content of the Intraoperative Record and any orders documented therein. Any exceptions are noted below.
[2019-08-13] MEDS: HYDROmorphone INJ 2 MG/ML SYR/VIAL IV PRN ×4 (15:39→15:54)
--- NOTE | 2019-08-13 15:46 | Anesthesiology Progress Note ---
Date of Service August 13, 2019 Anesthesia Post Procedure Vital Signs Vital Signs: Temp Pulse Pulse Pulse Resp BP BP 08/13/19 15:40 78 14 126/62 08/13/19 15:30 80 14 128/67 08/13/19 15:20 65 13 140/71 08/13/19 15:11 36.2 C L 90 14 159/82 H 08/13/19 13:17 37.2 C 68 20 93/47 L 08/13/19 12:29 37.0 C 62 18 137/72 08/13/19 10:00 79 16 136/74 08/13/19 08:55 84 16 109/53 L 08/13/19 04:57 37.1 C 76 20 133/82 Pulse Ox 08/13/19 15:40 99 08/13/19 15:30 99 08/13/19 15:20 97 08/13/19 15:11 96 08/13/19 13:17 98 08/13/19 12:29 96 08/13/19 10:00 96 08/13/19 08:55 96 08/13/19 04:57 99 Pain Intensity Back: Pain Intensity: 2 Transfer of Care Handoff Completed per policy Notes Mental Status: alert / awake / arousable Patient Amnestic to Procedure: Yes Nausea / Vomiting: adequately controlled Pain: adequately controlled Airway Patency, RR, SpO2: stable & adequate BP & HR: stable & adequate Hydration State: stable & adequate Anesthetic Complications: no major complications apparent and Pt Satisfied with anesthetic care
[2019-08-13] MEDS ORDERED: HYDROmorphone INJ 1 MG/ML SYRINGE IV PRN (16:24)
[2019-08-13] MEDS ORDERED: DO NOT ADMINISTER FLU VACCINE PRN (16:24)
[2019-08-13] MEDS ORDERED: DO NOT ADMINISTER PNEUMOCOCCAL VACCINE PRN (16:24)
[2019-08-13] MEDS ORDERED: ACETAMINOPHEN 325 MG TAB PO PRN (16:24)
[2019-08-13] MEDS ORDERED: HYDROmorphone HCL 2 MG TAB PO PRN (16:29)
[2019-08-13] MEDS: LACTATED RINGER'S 1,000 ML IV SCH ×2 (16:36→17:16)
[2019-08-13] MEDS: HYDROmorphone HCL 2 MG TAB PO PRN ×2 (17:19→23:27)
--- NOTE | 2019-08-13 17:26 | Progress Note ---
DATE: 08/13/2019 This is a patient of Dr. Ruelas who had a multilevel lumbar decompression done earlier this week. He was doing well until yesterday when he developed increased pain in the lower back going into the thighs. This was aggravated by things such as clenching his jaw, turning his head, coughing and walking. He contacted me last evening while I was combination presser and I had recommended he see his doctor the following day or if things worsen please go to the Emergency Room, which he did. I was called by the ER. Dr. Ruelas is out of town. I went and evaluated the patient. He was afebrile. His white count was normal. The wound was benign without any fluctuance, drainage or erythema. His reflexes were 0 at the knee and ankle. Clonus was 1 beat. Straight leg raising caused some discomfort into the back and upper buttock area. Motor function was 5/5 and perineal sensation was intact. The patient also reported feeling of weakness in his legs as well as the severe sharp pain. I spoke with Dr. Hinojosa who was gracious enough to come and see the patient and assume his care, admit if necessary.
[2019-08-13] MEDS: CEFAZOLIN 2000MG 2,000 MG/15 ML SYR IV SCH (20:35)
[2019-08-13] MEDS: HYDROCODONE/ACETAMINOPHEN 10/325 TAB PO PRN (20:35)
[2019-08-13] MEDS ORDERED: DOCUSATE SODIUM 100 MG CAP PO SCH (21:00)
[2019-08-14] MEDS: CEFAZOLIN 2000MG 2,000 MG/15 ML SYR IV SCH ×2 (03:23→12:29)
[2019-08-14] MEDS: HYDROCODONE/ACETAMINOPHEN 10/325 TAB PO PRN (03:23)
[2019-08-14] MEDS: HYDROmorphone HCL 2 MG TAB PO PRN ×2 (07:54→15:52)
[2019-08-14] MEDS: PANTOprazole 40 MG TAB PO SCH (07:56)
[2019-08-14] MEDS ORDERED: CYCLOBENZAPRINE HCL 10 MG TAB PO PRN (09:21)
--- NOTE | 2019-08-14 09:35 | Orthopedic Progress Note ---
Date of Service August 14, 2019 Assessment & Plan (1) Epidural hematoma: Will add 24 hours of Decadron plus Flexeril for better pain control. Continue light activity/ambulation only. Maintain MILA drain. DVT prophylaxis is in the form of teds and SCDs. Continue with bowel regimen. Supervising Physician Co-Signing Physician Notes Dr. Lalo Hinojosa Subjective Patient is postoperative day 1 I&D/evacuation of hematoma lumbar spine by Dr. Hinojosa and postoperative day [address] lumbar decomp[address] fusion by Dr. Murillo. He states today he has significant back pain. Leg pain is greatly improved. He is up and ambulatory to the restroom. Seems to be struggling with a bit of pain control. Review of Systems Review of Systems: All systems reviewed & are unremarkable except as noted in HPI & below Physical Exam Physical Exam: He was up and amatory the restroom and back in bed. Neurovascular intact bilateral lower extremities. Calf soft nontender. MILA drain is intact and functioning. Dressing clean dry and intact. Results & Data Vital Signs (Past 12 Hours) Vital Signs Temp Pulse Resp BP BP Pulse Ox 08/14/19 07:28 36.7 C 49 L 18 109/58 L 99 08/14/19 03:10 36.9 C 64 16 123/65 96 08/13/19 23:20 36.9 C 85 18 108/56 L 94
[2019-08-14] MEDS: DEXAMETHASONE SOD PHOSPHATE 8 MG in SYRINGE 0 ML IV SCH ×2 (13:34→21:38)
[2019-08-14] MEDS: KETOROLAC 30 MG/ML VIAL IV PRN (13:40)
[2019-08-14] MEDS ORDERED: MAGNESIUM CITRATE 296 ML/BTL PO STA (16:13)
[2019-08-15] MEDS: KETOROLAC 30 MG/ML VIAL IV PRN ×2 (00:18→13:49)
[2019-08-15] MEDS: DEXAMETHASONE SOD PHOSPHATE 8 MG in SYRINGE 0 ML IV SCH (05:58)
[2019-08-15] MEDS: PANTOprazole 40 MG TAB PO SCH (08:32)
--- NOTE | 2019-08-15 08:57 | Orthopedic Progress Note ---
Date of Service August 15, 2019 Assessment & Plan (1) Epidural hematoma: Patient has made significant improvement in the past 24 hours. We will continue to monitor for the next 24 hours. Maintain MILA drain and dressing. DVT prophylaxis in the form of teds and SCDs. Continue with pain control. Continue ambulation. Supervising Physician Co-Signing Physician Notes Dr. Lalo Hinojosa Subjective Patient is postoperative day 2 I&D/evacuation of hematoma lumbar spine Dr. Hinojosa and postoperative day 6 lumbar decompression fusion with Dr. Murillo. He is greatly improved today compared to yesterday. MILA drain output last shift was 25 cc. He was in the 170 feet in physical therapy. Review of Systems Review of Systems: All systems reviewed & are unremarkable except as noted in HPI & below Physical Exam Physical Exam: Appears much more comfortable today. Alert and oriented x3. Strength is intact bilateral extremities. Calf soft nontender. Lumbar dressing is clean dry and intact. Results & Data Vital Signs (Past 12 Hours) Vital Signs Temp Pulse Resp BP BP Pulse Ox 08/15/19 07:51 36.6 C 49 L 18 118/67 95 08/14/19 23:01 36.8 C 73 16 152/76 H 98
[2019-08-15] MEDS: HYDROCODONE/ACETAMINOPHEN 10/325 TAB PO PRN (19:19)
[2019-08-16] MEDS: KETOROLAC 30 MG/ML VIAL IV PRN ×3 (00:25→23:59)
--- NOTE | 2019-08-16 07:30 | Anesthesiology Progress Note ---
Date of Service August 16, 2019 Anesthesia Post Procedure Vital Signs Vital Signs: Temp Pulse Resp BP BP Pulse Ox 08/16/19 06:48 36.5 C 45 L 16 111/55 L 96 08/15/19 23:06 36.8 C 64 16 143/95 H 96 08/15/19 15:12 36.9 C 69 17 147/68 H 99 08/15/19 07:51 36.6 C 49 L 18 118/67 95 Pain Intensity Back: Pain Intensity: 4 Notes Mental Status: alert / awake / arousable and participated in evaluation Nausea / Vomiting: adequately controlled Pain: adequately controlled Airway Patency, RR, SpO2: stable & adequate BP & HR: stable & adequate Hydration State: stable & adequate Anesthetic Complications: no major complications apparent and Pt Satisfied with anesthetic care
[2019-08-16] MEDS: PANTOprazole 40 MG TAB PO SCH (08:08)
[2019-08-16] MEDS: HYDROCODONE/ACETAMINOPHEN 10/325 TAB PO PRN (20:26)
[2019-08-16 23:59] VITALS: O2SAT 95
[2019-08-17 07:19] VITALS: BP 119/71; PULSE 54; TEMP 98.1
--- NOTE | 2019-08-17 07:35 | Orthopedic Progress Note ---
Date of Service August 16, 2019 August 17, 2019 Assessment & Plan (1) Epidural hematoma: This time his MILA drains decreasing appropriately. Probably ready to be discharged home the next day or so. His Yola be turned over to 's after. Present on Admission?: Yes Subjective Patient's back pain is much more controlled. Leg symptoms improved. Physical Exam Physical Exam: On exam he is standing ambulating about the room without difficulty. Results & Data Vital Signs (Past 12 Hours) Vital Signs Temp Pulse Resp BP Pulse Ox 08/17/19 07:17 36.7 C 54 L 16 119/71 95 08/16/19 23:57 36.8 C 64 16 122/74 95
[2019-08-17] MEDS: PANTOprazole 40 MG TAB PO SCH (08:46)
--- NOTE | 2019-08-17 12:46 | Discharge Summary ---
Date of Service August 17, 2019 Admission HPI Per Admitting Provider This is a 44-year-old male that presents with severe back and bilateral leg pain. He is status post lumbar decompression Friday of this week. He done very well surgically and was discharged home in a normal condition. That upon discharge she was not using a walker and was pain-free. Unfortunately yesterday he began expensing worsening leg pain and back pain rating down both extremities. He states any coughing sneezing or cervical flexion reproduces severe back and bilateral leg pain. Denies any trauma fall or event. Is describing urinary retention. He is unable to ambulate without the assistance of a walker. He is very uncomfortable. Principal Diagnosis Lumbar epidural hematoma Discharge Data Allergies Allergy/AdvReac Type Severity Reaction Status Date / Time lisinopril AdvReac Mild Cough Verified 08/13/19 05:15 Procedures Performed Operation Date: 08/13/19 13:05 Actual Procedures p Evacuation Hematoma(Not Applicable) - Lalo Hinojosa DO Ordered Studies 08/13/19 05:29 CT lumbar spine w con Stat Hospital Course (1) Epidural hematoma: Patient presents the emergency room with worsening back and bilateral leg pain. CAT scan did demonstrate some additional compression at the previous decompressed site. Subsequently we elected to undergo emergent evacuation of lumbar epidural hematoma. He underwent the procedure and tolerated well. He was taken to orthopedic for postoperative. Postop day #1 pain was improved he was up and ambulating progressed to postop day #2 and 3 with a MILA drain decreasing appropriately. Subsequently was discharged home. They have discharges up and ambulating neurologically intact. Discharge instructions and orders can be found the chart for further review. Total Time Total Time Spent Total Time Spent (In Minutes): 20 minutes Discharge Plan Discharge Items Patient Disposition: Home - Self-Care Reason For Visit: EPIDURAL HEMATOMA Discharge Diagnosis: Epidural hematoma Activity: Per Instructions section Non-emergency contact: Primary Care Provider Call non-emergency contact if: you have any medication questions Follow-up/Referrals: Donta Bhandari DO [Primary Care Provider] - Diet: Regular Addtl Attending Provider Instructions: ACTIVITY RECOMMENDATIONS: SELF CARE INSTRUCTIONS AFTER THORACIC/LUMBAR FUSIONS 1. You may walk to your tolerance. It is good exercise for your legs and back. Expect some back and intermittent leg aches and pains. 2. You may perform "counter-top" level activities (make a sandwich, lizz with a project, etc.). 3. No bending or lifting of more than 10 pounds or back twisting of any nature (roll like a log when turning in bed). 4. You may ride in a car for 20-30 minutes at a time. No driving until after your first visit with your doctor. 5. Frequent changes of position and restricting sitting to 30 minutes at a time will help limit the amount of back spasms and stiffness you may experience. 6. You may discontinue the use of ambulatory aids (cane, crutches, etc.) once your strength and confidence allow. 7. You may replenishment merchandising associate the shower and let water strike your incision when you arrive home at least once daily. Do not take a tub bath, sit in a hot tub or go into a swimming pool until after your first recheck in the office. SPECIAL CARE INSTRUCTIONS: VERY IMPORTANT TO READ AND REVIEW A. Your surgical incision has been closed with a cosmetic suture under the skin that will dissolve in about 6 weeks. In 14 days, you can use a pair of clean scissors and cut the suture that is left outside of the skin at the ends of your incision. 1. The small skin tapes can be removed 7 days after surgery if they have not fallen off by that point. 2. You may keep the wound open to air as much as possible to promote healing after post-op day number 5 unless told otherwise by your doctor. 3. If you think the wound looks like it is becoming infected (redness or worsening drainage) and/or you are experiencing fever, chill or worsening back pain and muscle spasms, contact the office so that we may evaluate you as soon as possible. B. Complications are uncommon, but please contact us if you have any signs or symptoms of: 1. wound infection (fever higher than 102.5 degrees F, redness, separation of wound, drainage, or increasing pain from the incision) 2. blood clots in legs (pain, swelling, redness and warmth in legs) 3. urinary tract infection (fever higher than 102.5 degrees F, burning upon urination or increased frequency of urination) 4. nerve problems (inability to walk on your toes or heels, numbness, loss of bowel or bladder control) 5. any other symptoms that concern you C. Please call the office at if you have any concerns or questions about your operation or recovery. D. No smoking! Smoking drastically decreases the chance of a solid fusion. E. Do not take any anti-inflammatory medications (Indocin, Advil, Motrin, Aspirin, Naprosyn, etc.) as these may inhibit the chance of a solid fusion. Tylenol is okay to take for pain. MANAGING PAIN AFTER SPINAL SURGERY 1. Narcotic medication is intended for short-term use and will be provided for surgical pain. Surgical pain usually lasts for a period of 4-6 weeks. Narcotic medication includes Percocet, Vicodin, Darvocet, Tylenol #3 or Lortab. 2. Longer-term pain is more appropriately treated with non-narcotic medication such as Tylenol ES. 3. Muscle spasm is not appropriately treated with narcotics. Muscle relaxers such as Soma, Flexeril or Skelaxin can be used along with Tylenol ES. 4. Remember that we all live with some "aches and pains". This is not unusual or uncommon after an injury or as we get older. a. Back pain is expected and may include muscle spasms for 4 to 6 weeks after surgery. The pain should gradually improve. If the pain worsens for no apparent reason, please contact the office. b. Intermittent leg pain may also be experienced and should not be concerned about unless it worsens for no apparent reason. If so, please contact the office. 5. We will provide appropriate medication within the normal guidelines of their prescribed use. We will also be very cautious and aware of potential abuse and extended duration of patients' medication needs. a. Pain medications are for your comfort and to assist with sleep and rest so that the tissue can heal. They are not provided in order to return to normal activity and should not be used through the day. To do so or worsening pain at night can result from ongoing tissue damage and development of tolerance to the prescribed medicine. 6. Please allow 2-3 days to process refills. Prescriptions will not be mailed but must be picked up at the office. FOLLOW UP VISIT: Keep your scheduled follow-up appointment. Any questions, please call the office at . Pending Studies at Discharge: No Stand-Alone Forms: My [facility] [employer] and [place] Order Prescriptions: New oxycodone 5 mg Tablet 5 mg PO Q4H PRN (Reason: Pain) Qty: 30 RF: 0 Continued celecoxib [Celebrex] 200 mg capsule 200 mg PO BID RF: 0 omeprazole 20 mg tablet,delayed release (DR/EC) 20 mg PO QAM RF: 0 hydrocodone-acetaminophen [Reliance] 10-325 mg tablet 1 tab PO Q6H PRN (Reason: pain) Qty: 40 RF: 0 hydromorphone [Dilaudid] 4 mg tablet 4 mg PO Q6H PRN (Reason: pain) Qty: 20 RF: 0 Discharge Orders: Discharge Order (Routine); Ordered 08/17/19 Ordered By: Lalo Hinojosa Admission Data Admit Date/Time: 08/13/19 11:06 Attending Provider: Lalo Hinojosa Admit Provider: Lalo Hinojosa Primary Care Provider: Donta Bhandari Other Interventions: Discharge Summary Assessment (RN) Last Done: 08/17/19 10:16 DC Date/Time DO NOT enter until pt leaves facility: 08/17/19 11:31
== END 2019-08-17 11:31 | disposition home or self-care (01) | DRG 908 ==
LOC: ED 04:55 → 3W 11:06